=== PATIENT | female | born 1960 | race Caucasian/White ===

== ENCOUNTER 2019-07-17 10:51 | Inpatient (IN) | payer BC, OTHER ==
[~2019-07-17] VITALS: Ht 170.2 cm; Wt 52.2 kg
[2019-07-17 11:10] LABS: BASOPHILS % (AUTO) 1.1 % (0.0-2.0); EOSINOPHILS % (AUTO) 2.7 % (0.0-6.0); HEMATOCRIT 37 % (33-45); HEMOGLOBIN 12.4 g/dL (11.5-14.8); LYMPHOCYTES # (AUTO) 1.4 /CMM (0.8-4.8); LYMPHOCYTES % (AUTO) 30.5 % (20.0-44.0); MEAN CORPUSCULAR HGB CONC 34 g/dl (31.0-36.0); MEAN CORPUSCULAR VOLUME 99 fL (82-100); MONOCYTES # (AUTO) 0.4 /CMM (0.1-1.30); MONOCYTES % (AUTO) 8.5 % (2.0-12.0); NEUTROPHILS # (AUTO) 2.6 /CMM (1.8-8.9); NEUTROPHILS % (AUTO) 57.2 % (43.0-81.0); PLATELET COUNT (AUTO) 169 /CMM (150-450); RED BLOOD CELL COUNT(AUTO) 3.71 MIL/uL (4.0-5.2); WHITE BLOOD COUNT (AUTO) 4.5 K/uL (4.3-11.0)
--- NOTE | 2019-07-17 11:10 | NUR ---
[id number], from home, suicidal, took xanax 2 tabs, adderall 1 tab and wine patient verbalized "i just want to ". PT ALTERED AND UNSTEADY. DENIES ANY MEDICAL COMPLAINTS AT THIS TIME. NO ACUTE DISTRESS NOTED. SKIN WARM, DRY, INTACT. PT WANDED BY SECURITY, SUICIDE PRECAUTIONS IN PLACE. MADE COMFORTABLE AND READY FOR EVAL.
--- NOTE | 2019-07-17 11:15 | NUR ---
PLACED PT ON BEDPAN FOR URINE SAMPLE. UNABLE TO AMBULATE DUE TO ALTERED STATE
[2019-07-17 11:16] LABS: CALCIUM, SERUM 8.5 mg/dL (8.5-10.1); CREATININE 0.6 mg/dL (0.6-1.3); POTASSIUM 3.7 mmol/L (3.5-5.1)
[2019-07-17 11:23] LABS: ALBUMIN 3.9 g/dL (3.4-5.0); BILIRUBIN,DIRECT 0.1 mg/dL (0.0-0.2); BILIRUBIN,TOTAL 0.3 mg/dL (0.2-1.0); TOTAL PROTEIN, SERUM 7.2 g/dL (6.4-8.2)
[2019-07-17 11:24] LABS: SALICYLATE 0.7 mg/dL (2.8-20.0)
--- NOTE | 2019-07-17 11:59 | NUR ---
Carolina gonzalez in [facility] - 07/17/19 at 1312 by JOHANNE DAUGHTER AT BEDSIDE
--- NOTE | 2019-07-17 12:47 | NUR ---
NURSING SUP GAVE GPS BED 228-2.
--- NOTE | 2019-07-17 13:06 | NUR ---
AWAITING PT TO BE MORE STABLE BEFORE TRANSFER
--- NOTE | 2019-07-17 13:46 | NUR ---
Patient is resting comfortably in bed with eyes closed. Easily aroused. VSS
--- NOTE | 2019-07-17 16:00 | NUR ---
PT GIVEN FOOD TRAY
--- NOTE | 2019-07-17 18:13 | NUR ---
Patient is resting comfortably in bed with eyes closed. Easily aroused. VSS
--- NOTE | 2019-07-17 18:16 | NUR ---
FRIEND AT BEDSIDE
--- NOTE | 2019-07-17 18:22 | NUR ---
PT AMBULATORY WITH STEADY GAIT
--- NOTE | 2019-07-17 18:30 | NUR ---
URINE SENT TO STAT LAB
[2019-07-17 19:03] LABS: APPEARANCE,URINE Clear (CLEAR); BILIRUBIN,URINE Negative (NEGATIVE); BLOOD, URINE Negative Ery/uL (NEGATIVE); COLOR,URINE Yellow (YELLOW); KETONES,URINE Negative (NEGATIVE); LEUKOCYTE ESTERASE ,URINE Negative (NEGATIVE); NITRITE, URINE Negative (NEGATIVE); PH,URINE 6.5 (5.0-8.0); PROTEIN,URINE Negative (NEGATIVE); UGLUCOSE Negative (NEGATIVE); UROBILINOGEN,URINE 0.2 EU/dL (0.2)
--- NOTE | 2019-07-17 21:18 | NUR ---
Carolina gonzalez in [facility] - 07/17/19 at 2118 by KEZIA BED ASSIGNMENT 215
--- NOTE | 2019-07-17 21:18 | NUR ---
BED ASSIGNMENT 215-B
--- NOTE | 2019-07-17 21:43 | NUR ---
REPORT GIVEN TO RENE BONILLA FOR ANGELA
--- NOTE | 2019-07-17 22:00 | NUR ---
GPS RABBET OPERATOR NOTES: ADMITTED 59 Y/O FEMALE. PT ADMITTED FROM [facility] ON 5150. PER HOLD PT CAME TO THE HOSPITAL DUE TO SUICIDAL IDEATION AND LAST PM OVERDOSED ON ATIVAN AND AMBIEN. PT REMAINED DEPRESSED AND SUICIDAL AT THAT TIME. PT LEFT HER OF THIRTY FIVE YEARS AND HE OWNS HALF THE HOUSE AND STILL LIVES THERE. UPON FACE TO FACE ASSESSMENT PT IS ALERT AND ORIENTED X 3-4, COOPERATIVE, FLAT AFFECT, ANXIOUS, DEPRESSED, AND TEARFUL. PT STATED, "IM HERE BECAUSE I TRIED TO HURT MYSELF." PT HERNANDEZ SI/HI AT THIS TIME. PT STATED, "I FEEL SAFE HERE." PT STARTED TO BECOME TEARFUL ONCE SHE MENTIONED HER EX . PATENT STATED HER CURRENT MEDICATION SHE IS TAKING ARE LEXPRO 10MG PO DAILY AND LEVOTHYROXINE 100MCG PO ACB. MEDICATION PUT IN ON MED RECON. PT SIGNED CONSENT PAPERS. ENVIRONMENTAL SAFETY CHECK DONE Q15 MIN. ENCOURAGED PT TO VERBALIZE FEELINGS AND CONCERNS TO STAFF. ORIENTED TO THE UNIT. MD AWARE AND NOTIFIED OF ADMISSION TO MARINE ENGINE MECHANIC ANNMARIE AND PSYCH DR SNIDER. BELONGINGS CHECKED FOR CONTRABAND WERE DONE. NURSING ASSESSMENT DONE SKIN ASSESSMENT: PICTURE TAKEN AND PUT IN THE CHART. WITH RIGHT SHOULDER REDNESS AND BILATERAL KNEE BRUISES UPON ADMISSION. PER PATIENTS REQUEST, PT DOES NOT WANT HER FRIEND MARSHA ZEPEDA TO VISIT HER IF HE COMES TO SEE HER AT THE HOSPITAL. HE IS ONLY ALLOWED TO DROP OFF HER SHAMPOO. PT STATED ANYONE ELSE CAN VISIT HER, JUST NOT MARSHA ZEPEDA. WILL ENDORSE TO DAY SHIFT TO MAKE THEM AWARE. PT RIGHTS DISCUSS BY MARKETING OPERATIONS SPECIALIST. PROVIDE PT WITH HANDBOOK AND MED GUIDE. VITALS WNL. NO S/S OF RESP DISTRESS. BREATHING EVEN AND UNLABORED. CONTINUE TO MONITOR.
--- NOTE | 2019-07-17 22:04 | NUR ---
[facility]
[2019-07-17] MEDS ORDERED: MAGNESIUM HYDROXIDE 30 ML UDC PO PRN (22:30)
[2019-07-17] MEDS ORDERED: BLOOD SUGAR DIAGNOSTIC 1 EACH STRIP IN ONE (22:30)
[2019-07-17] MEDS ORDERED: MAG HYDROX/AL HYDROX/SIMETH 30 ML UDC PO PRN (22:30)
[2019-07-17] MEDS ORDERED: TEMAZEPAM 7.5 MG CAPSULE PO PRN (22:30)
[2019-07-17] MEDS ORDERED: ACETAMINOPHEN 325 MG TABLET PO PRN (22:30)
[2019-07-18] MEDS ORDERED: ESCI10TA PO (00:13)
[2019-07-18] MEDS ORDERED: LEVO100T9 PO (00:13)
--- NOTE | 2019-07-18 00:34 | NUR ---
GPS RN NOTES: PT C/O SHE IS HAVING A HARD TIME FOLLOWING ASLEEP. CHECKED PT VITALS WNL. OFFERED. RESTORIL 7.5 MG PO PRN ORDERED. PT AGREED. NO S/S OF RESP DISTRESS. BREATHING EVEN AND UNLABORED. PT TOLERATED MEDICATION WELL. CONTINUE TO MONITOR.
[2019-07-18 00:56] VITALS: BP 149/93
[2019-07-18] MEDS ORDERED: AMLO5TAB4 PO (05:36)
[2019-07-18] MEDS ORDERED: ADVIL PM (05:36)
--- NOTE | 2019-07-18 06:13 | NUR ---
GPS RN NOTES: PT MENTIONED SHE IS ON LEXPRO 10MG, LEVOTHRYXINE 100MCG, NORVASC 5MG, AND ADVIL PM PRN. PT DENIES ANY MEDICAL HISTORY PROBLEM AND THAT SHE TAKING THEM FOR PRN. MEDS PUT IN MED RECON. WILL ENDORSE TO DAY SHIFT FOR F/U WITH MD TO RECONCILE MEDICATION. CONTINUE TO MONITOR.
[2019-07-18] MEDS: LORAZEPAM 0.5 MG TABLET PO PRN ×2 (07:41→14:17)
[2019-07-18] MEDS: LEVOTHYROXINE SODIUM 100 MCG TABLET PO SCH (07:41)
[2019-07-18 08:00] VITALS: BP 116/61
[2019-07-18 08:58] LABS: CREATININE 0.6 mg/dL (0.6-1.3)
[2019-07-18 16:00] VITALS: BP 144/95
--- NOTE | 2019-07-18 16:05 | NUR ---
Family Contact: SW called the pts brother, Timothy ([phone]), and discussed the pts initial treatment plan and discharge plan. Pts brother expressed concern that if the pt were to return home that she may attempt again and be successful. MAYELIN stated that she will speak to the MD and then keep the pts brother updated regarding treatment.
--- NOTE | 2019-07-18 16:14 | NUR ---
Initial Treatment Plan: Pt currently resides in an apartment with two subletters located at [address] [place] [address]; ([phone]). Per pt, she would like to return to her home. MAYELIN will work with the pt and the MD regarding appropriate discharge planning. SW will form a safe and proper discharge.
[2019-07-18 19:40] VITALS: BP 140/82
[2019-07-18] MEDS: TEMAZEPAM 7.5 MG CAPSULE PO PRN (21:04)
[2019-07-18] MEDS: ALPRAZOLAM 0.25 MG TABLET PO PRN (21:05)
--- NOTE | 2019-07-18 21:05 | NUR ---
vegetable washer notes restoril 50 given as ordered per pt requested then after she take sleep medication she also asking for her anxiety meds which is xanax. educated pt for possible side effect and pt understood well. kept her warm and comfortable at all times. will continue to monitor.
--- NOTE | 2019-07-19 | NUR ---
canvas shrinker notes pt sleeping comfortably in bed without any distress noted. will continue monitoring.
[2019-07-19] MEDS: LEVOTHYROXINE SODIUM 100 MCG TABLET PO SCH (07:04)
[2019-07-19 08:00] VITALS: BP 149/83
[2019-07-19] MEDS: ALPRAZOLAM 0.25 MG TABLET PO PRN ×2 (08:04→23:10)
[2019-07-19] MEDS: AMLODIPINE BESYLATE 5 MG TABLET PO SCH (09:11)
[2019-07-19] MEDS: ESCITALOPRAM OXALATE (10 MG) 10 MG TABLET PO SCH (09:11)
--- NOTE | 2019-07-19 09:38 | NUR ---
UR Note: MAYELIN faxed a clinical to [facility] Repairer Resistance Welding Machines Karla Velázquez to the fax number: [phone].
--- NOTE | 2019-07-19 12:25 | NUR ---
Substance Abuse Intervention: SW conducted a substance abuse intervention with the pt due to her alcohol abuse that resulted in the pt receiving 2 DUIs.
--- NOTE | 2019-07-19 15:35 | NUR ---
Group note: Pt attended a group session on 07/19/19 at 2PM discussing suicidal ideation and urges. S: I have attempted about three times in my life in the past two years by overdose. This time I had the building picked out that I was going to jump off of but before my uber putaway driver got there I asked him to take me to the hospital instead. Something held me back from ending my life and I think that is because I am generally an optimistic person and the thought that it could get better kept me going. But I was so determined to do it that morning and that is such a scary thought. O: Pt was present during the group session and was cooperative. Pt appeared to be in a dysphoric mood and presented with an anxious affect. Pt was attentive and provided feedback to all of the other patients who attended. Pt was able to appropriately maintain eye contact and tone of voice throughout the assessment. Pt was observed to be trembling because her hands were unsteady. A: Pt expressed that she was always a positive individual but her recent life events have caused her to feel depressed about her life and the thought that she did not intend to be unmarried and living with young roommates at this age has been keeping her from being positive. Pt stated that she had masked her feelings for years and came to the understanding that not addressing her feelings have caused her to bottle them up and when all of the feelings come out she ends up making an attempt. Pt understands that she needs to consistently address her feelings. P: Pt will continue milieu treatment and medication stabilization.
[2019-07-19 16:00] VITALS: BP 127/77
[2019-07-19 20:00] VITALS: BP 144/90
[2019-07-19] MEDS: TEMAZEPAM 7.5 MG CAPSULE PO PRN (22:09)
[2019-07-20 08:00] VITALS: BP 132/87
[2019-07-20] MEDS: LEVOTHYROXINE SODIUM 100 MCG TABLET PO SCH (08:14)
[2019-07-20] MEDS: ESCITALOPRAM OXALATE (10 MG) 10 MG TABLET PO SCH (08:14)
[2019-07-20] MEDS: AMLODIPINE BESYLATE 5 MG TABLET PO SCH (08:15)
--- NOTE | 2019-07-20 10:38 | NUR ---
UR Note: SW called the pts [employer] Rotary Swaging Machine Operator, Karla Velázquez ([phone] ext [phone]), and left a clinical on her voicemail requesting additional days of authorization.
--- NOTE | 2019-07-20 11:20 | NUR ---
Family Contact: SW called the pts friend, Sohan ([phone]), and spoke to him about the pts treatment plan. It was expressed that the pt is not safe in her home and the SW stated that the pt is refusing placement in an Assisted Living or an Independent Living due to her finances. SW stated that she will attempt to receive additional authorization from the insurance company.
[2019-07-20] MEDS: ALPRAZOLAM 0.25 MG TABLET PO PRN ×2 (11:45→21:58)
--- NOTE | 2019-07-20 13:55 | NUR ---
UR Note: [employer] Supervisor Quality Control, Karla Velázquez ([phone] ext [phone]), called the SW and the SW provided her with additional information regarding the pt. Pt was authorized two additional days 07/20 and 07/21.
[2019-07-20] MEDS ORDERED: ONDANSETRON HCL/PF 4 MG/2 ML VIAL ONE (15:04)
[2019-07-20] MEDS ORDERED: KETOROLAC TROMETHAMINE 15 MG/ML VIAL ONE (15:04)
--- NOTE | 2019-07-20 15:28 | NUR ---
GROUP NOTE: SW encouraged pt to attend group on this present day discussing "discharge planning." Pt refused asking who will be attending group as she states that yesterday while in group another pt was making her feel very anxious and stated that she would rather not engage with other pts in the unit. Pt stated that she already has her discharge plan figured out and did not need to discuss this in a group setting.
[2019-07-20 16:00] VITALS: BP 146/71
[2019-07-20 21:16] VITALS: BP 109/69
[2019-07-20] MEDS: ARIPIPRAZOLE 2 MG TABLET PO SCH (21:58)
[2019-07-20] MEDS: TEMAZEPAM 7.5 MG CAPSULE PO PRN (22:37)
[2019-07-21 08:00] VITALS: BP 117/67
[2019-07-21] MEDS: AMLODIPINE BESYLATE 5 MG TABLET PO SCH (08:24)
[2019-07-21] MEDS: ESCITALOPRAM OXALATE (10 MG) 10 MG TABLET PO SCH (08:25)
[2019-07-21] MEDS: LEVOTHYROXINE SODIUM 100 MCG TABLET PO SCH (08:25)
--- NOTE | 2019-07-21 10:07 | NUR ---
UR Note: SW called the pts [employer] Casino Floor Supervisor, Karla Velázquez ([phone] ext [phone]), and left a clinical on her voicemail requesting additional days of authorization.
--- NOTE | 2019-07-21 10:07 | NUR ---
Individual Intervention with the pt: SW spoke to the pt at bedside individually. Pt stated that she is aware that the insurance company is being difficult in terms of providing additional authorization but she states that she is not ready to be discharged at this time. Pt states that she is easily triggered and that even a commercial regarding alcohol triggers her and makes her think that she would like a drink. Pt states that she is aware that instead of drinking when she is feeling triggered she can go for a walk or even exercise. SW stated that was positive thinking.
--- NOTE | 2019-07-21 11:37 | NUR ---
UR Note: [employer] Electronic Specialist, Karla Velázquez ([phone] ext [phone]), called the SW and stated that the pt is approved throughout the weekend.
[2019-07-21 16:00] VITALS: BP 113/77
[2019-07-21 20:00] VITALS: BP 101/70
[2019-07-21 20:10] VITALS: BP 101/70
[2019-07-21] MEDS: ALPRAZOLAM 0.25 MG TABLET PO PRN (20:39)
[2019-07-21] MEDS: ARIPIPRAZOLE 2 MG TABLET PO SCH (21:19)
--- NOTE | 2019-07-21 22:00 | NUR ---
Patient in room, calm,pleasant, feeling anxious, requested Xanax right away, interacting with room mate, denies suicidal ideation, expressed concern about being discharged. Continue monitoring q15 minutes with the help of staff to maintain safety
[2019-07-21] MEDS: TEMAZEPAM 7.5 MG CAPSULE PO PRN (22:53)
--- NOTE | 2019-07-22 06:08 | NUR ---
NO BEHAVIOR CHANGE OVERNIGHT, PATIENT ASLEEP, RECEIVED XANAX AND PM MEDS
[2019-07-22 08:00] VITALS: BP 93/69
[2019-07-22] MEDS: AMLODIPINE BESYLATE 5 MG TABLET PO SCH (08:40)
[2019-07-22] MEDS: LEVOTHYROXINE SODIUM 100 MCG TABLET PO SCH (08:40)
[2019-07-22] MEDS: ESCITALOPRAM OXALATE (10 MG) 10 MG TABLET PO SCH (08:40)
--- NOTE | 2019-07-22 13:10 | NUR ---
given mom for constipation.
[2019-07-22 16:05] VITALS: BP 114/66
--- NOTE | 2019-07-22 18:00 | NUR ---
walking about,no acute distress,seems to monitor and show concern for well being of roomate.
--- NOTE | 2019-07-22 19:30 | NUR ---
RN NOTES: PATIENT WALKING AROUND THE UNIT, DENIES SI/HI/AVH AT THIS TIME,.ENCOURAGED FOR VERBALIZATION OF FEELINGS, SAFETY PRECAUTIONS IMPLEMENTED. INTERACT WITH ENGAGED, WILL CONTINUE TO MONITOR Q15MIN ROUNDS FOR SAFETY AND BEHAVIOR.
[2019-07-22 20:09] VITALS: BP 107/76
[2019-07-22] MEDS: ALPRAZOLAM 0.25 MG TABLET PO PRN (20:46)
--- NOTE | 2019-07-22 20:48 | NUR ---
RN NOTES: PT. C/O FEELING ANXIOUS XANAX 0.125 MG PO PRN ,GIVEN PER PT. REQUEST , WILL CONTINUE TO MONITOR.
[2019-07-22] MEDS: ARIPIPRAZOLE 2 MG TABLET PO SCH (22:04)
[2019-07-22] MEDS: TEMAZEPAM 7.5 MG CAPSULE PO PRN (22:55)
--- NOTE | 2019-07-22 22:55 | NUR ---
RN NOTES: PT. C/O INSOMNIA RESTORIL 15 MG PO PRN GIVEN, PER PT. REQUEST WILL CONTINUE TO MONITOR.
--- NOTE | 2019-07-23 06:20 | NUR ---
GPS RN CLOSING NOTE: PATIENT RESTING IN BED ASLEEP, AROUSES EASILY. NO ACUTE DISTRESS NOTED. DENIES PAIN OR DISCOMFORT, NO AGITATION NOTED AT THIS TIME/ BUT EASILY AGITAED. DENIES SI/HI/AVH AT THIS TIME. SAFETY PRECAUTIONS IMPLEMENTED.ENCOURAGED PT. TO VERBALIZED ANY FEELING, WILL CONTINUE TO MONITOR FOR PT'S SAFETY AND BEHAVIOR.
[2019-07-23] MEDS: LEVOTHYROXINE SODIUM 100 MCG TABLET PO SCH (07:51)
[2019-07-23 08:00] VITALS: BP 109/67
[2019-07-23] MEDS: AMLODIPINE BESYLATE 5 MG TABLET PO SCH (08:45)
[2019-07-23] MEDS: ESCITALOPRAM OXALATE (10 MG) 10 MG TABLET PO SCH (08:45)
[2019-07-23] MEDS: ALPRAZOLAM 0.25 MG TABLET PO PRN ×2 (12:30→21:08)
--- NOTE | 2019-07-23 12:30 | NUR ---
RN NOTE- AGITATION/ PT W ANXIETY AND RESTLESSNESS. XANAX PRN DOSE GIVEN AT THIS TIME
[2019-07-23 16:00] VITALS: BP 100/72
[2019-07-23 20:16] VITALS: BP 149/75
[2019-07-23] MEDS: ARIPIPRAZOLE 2 MG TABLET PO SCH (21:08)
--- NOTE | 2019-07-23 21:10 | NUR ---
Pt c/o anxiety. Least restrictive measures ineffective. Xanax 0.125 mg po given as ordered. Will continue to monitor.
--- NOTE | 2019-07-23 22:14 | NUR ---
Post 1 hr xanax effective. Pt is calm and lying in bed. Will continue to monitor.
[2019-07-23] MEDS: TEMAZEPAM 7.5 MG CAPSULE PO PRN (22:33)
--- NOTE | 2019-07-23 22:35 | NUR ---
Pt c/o insomnia. Least restrictive measures ineffective. Restoril 15 mg po given as ordered. Will continue to montor.
--- NOTE | 2019-07-23 23:48 | NUR ---
Post 1 hr. Restoril effective. Pt asleep in bed easy to arouse. Frequent visual check done for safety. Will continue to monitor.
[2019-07-24] MEDS: LEVOTHYROXINE SODIUM 100 MCG TABLET PO SCH (07:34)
[2019-07-24 08:00] VITALS: BP 113/68
[2019-07-24 08:25] VITALS: BP 113/68
[2019-07-24] MEDS: AMLODIPINE BESYLATE 5 MG TABLET PO SCH (08:25)
[2019-07-24] MEDS: ESCITALOPRAM OXALATE (10 MG) 10 MG TABLET PO SCH (08:25)
--- NOTE | 2019-07-24 09:19 | NUR ---
Family Contact: MAYELIN called the pts friend, Sohan ([phone]), and informed him that the pt will be discharged today. He stated that he would check up on her soon after she arrives at her home.
--- NOTE | 2019-07-24 13:48 | NUR ---
RN NOTE- DC NOTE/ PT DC AT THIS TIME. ALERT ORIENTED TO PERSON PLACE TIME AND PURPOSE. DENIES SI HI VH AT TIME OF DC. DC PLANNING AND AFTERCARE REVIEWED W PT AND SHE VERBALIZED UNDERSTANDING. VALUABLES RETURNED TO PT AND SIGNED FOR. ID WRISTBAND REMOVED. ESCORTED OFF OF UNIT
--- NOTE | 2019-07-24 14:15 | NUR ---
UR Note: MAYELIN called the pts [employer] Machine Shop Specialist, Karla Velázquez ([phone] ext [phone]), and left a discharge clinical on her voicemail.
--- NOTE | 2019-07-24 14:41 | NUR ---
Discharge Note: Pt was discharged to back to her home located at [address] [facility] [address], [place] [address]; ([phone]). Pt was discharged at 11AM via Uber. Pts friend, Sohan ([phone]), was notified. Upon discharge, the pt appeared to be in a euthymic mood and calm affect. Pt stated, I feel ready to go back home and take on my life. Pt denied both suicidal and homicidal ideation as well as auditory and visual hallucinations. Pt was alert and oriented x4 (time, place, self and situation). Pt was provided with substance abuse referrals that are listed below. Pt will be under the care of psychiatrist, Dr. Judy Schroeder, located at [address] [facility], [facility] [address], [place] [address]; ([phone]); and a fax of records was sent to: [phone]. Pt has an appointment set for 08/03/19 at 9AM. Pt will also be under the care of her sql architect, Dr. Ricardo Kumar, located at [address], [address], [place] [address]; . Substance Abuse Referrals: [facility] [address] [place] [address] Tel. [facility] [address] [place] Provider Mental Health Treatment Tele-dermatology HIV Services Telemedicine Services [place] [address] [place] [address] [facility] [address] [place] [address]
--- NOTE | 2019-07-25 09:15 | NUR ---
UR Note: SW called the pts [employer] Welfare Administrator, Karla Velázquez ([phone] ext [phone]), and left a additional information for the discharge clinical on her voicemail.
== END 2019-07-24 15:15 | disposition home or self-care (01) | DRG 885 ==
LOC: ER 10:52 → GPS 21:18
PROVIDERS: ADMIT Psychiatry & Neurology Psychosomatic Medicine; ATTEND Registered Nurse
DX: F33.2 Major depressive disorder, recurrent severe without psychotic features (principal); F50.9 Eating disorder, unspecified; F41.9 Anxiety disorder, unspecified; E03.9 Hypothyroidism, unspecified; I10 Essential (primary) hypertension; F10.129 Alcohol abuse with intoxication, unspecified; Y90.8 Blood alcohol level of 240 mg/100 ml or more; T50.992A Poisoning by other drugs, medicaments and biological substances, intentional self-harm, initial encounter; Y92.009 Unspecified place in unspecified non-institutional (private) residence as the place of occurrence of the external cause; Z91.14 Patient's other noncompliance with medication regimen
CPT/HCPCS: 36415; 80048-TC; 80061-TC; 80076-TC; 80305; 81000-TC; 82565-TC; 82962-TC; 84443-TC; 85025-TC; 87081-TC; G0480; J1885; J2405

== ENCOUNTER 2020-07-23 14:55 | Inpatient (IN) | payer OTHER ==
[~2020-07-23] VITALS: Ht 170.2 cm; Wt 54.4 kg
[2020-07-23 14:00] VITALS: BP 130/76
[~2020-07-23 14:55] MED LIST: ADVIL PM; AMLO5TAB4 PO; ESCI10TA PO; LEVO100T9 PO
[2020-07-23 15:30] VITALS: BP 130/76
[2020-07-23] MEDS ORDERED: MAGNESIUM HYDROXIDE 30 ML UDC PO PRN (15:30)
[2020-07-23] MEDS ORDERED: ACETAMINOPHEN 325 MG TABLET PO PRN (15:30)
[2020-07-23] MEDS ORDERED: MAG HYDROX/AL HYDROX/SIMETH 30 ML UDC PO PRN (15:30)
[2020-07-23] MEDS ORDERED: BLOOD SUGAR DIAGNOSTIC 1 EACH STRIP IN ONE (15:30)
[2020-07-23] MEDS ORDERED: ARIP2TAB19 PO (15:52)
[2020-07-23] MEDS ORDERED: CHOL100062 PO (15:54)
[2020-07-23] MEDS ORDERED: CALC500T52 PO (15:54)
[2020-07-23] MEDS ORDERED: ASCO-352 PO (15:54)
[2020-07-23] MEDS ORDERED: VITA1TAB56 PO (15:54)
[2020-07-23] MEDS ORDERED: MAGN400T26 PO (15:54)
--- NOTE | 2020-07-23 17:16 | NUR ---
TUBE TEST TECHNICIAN NOTE: PATIENT IS A 60 YEAR OLD FEMALE ADMITTED FROM [facility] PLACED ON A 5150 FOR DTS. PER HOLD PATIENT ATTEMPTED SUICIDE DUE TO FEELING OVERWHELMED DUE TO FEELING OVERWHELMED DUE TO BREAK UP WITH OF 40 YEARS ,PATIENT REPORT SHE TOOK A FULL BOTTLE OF ADVIL AND ALTOS OF VODKA AND HORMONE PILLS TO ATTEMPT TO END HER LIFE".PATIENT UPON FACE TO FACE ASSESSMENT, PATIENT IS ALERT AND ORIENTED X3, WELL GROOMED, CLEAR SPEECH, AT THIS TIME. GUARDED, PASSIVE BEHAVIOR. ANXIOUS. FLAT AFFECT. DISORGANIZED THOUGHT PROCESS. PATIENT STATED "I WANTED TO KILL MYSELF ". VS TAKEN BP 130/76 ,T 98.7 , R 20 , P 80 ,O2 SAT 100% . CONTACTED DR ALVA AND ANNMARIE HARRELL DNP AND INFORMED THEM OF THE ADMISSION WITH ADMITTING ORDERS. PATIENT'S HANDBOOK GIVEN WITH PATIENT'S RIGHTS HAND BOOK GIVEN AND EXPLAINED TO PATIENT ABLE TO VERBALIZE UNDERSTANDING . SKIN DISCOLORATION RIGHT THIGH AND ALVARO ARMS . WILL CONTINUE TO MONITOR PATIENT Q15 MINUTES FOR SAFETY AND BEHAVIOR PER GPS PROTOCOL.
[2020-07-23 20:18] VITALS: BP 118/78
[2020-07-24] MEDS: TEMAZEPAM 7.5 MG CAPSULE PO PRN ×2 (00:37→21:12)
--- NOTE | 2020-07-24 06:35 | NUR ---
RN NOTES: PATIENT RESTING IN ROOM. NO S/S OF DISTRESS. NO CHANGE OF CONDITION NOTED, SAFETY PRECAUTION MAINTAINED, ALL PATIENT CARE NEEDS MET AT THIS TIME. WILL CONTINUE TO MONITOR PATIENT FOR MOOD, BEHAVIOR AND SAFETY AND ENDORSE TO AM SHIFT FOR CONTINUITY CARE.
--- NOTE | 2020-07-24 07:30 | NUR ---
PT RESTING IN BED.NO DISTRESS,VS STABLE.
[2020-07-24 07:39] LABS: ALBUMIN 3.9 g/dL (3.4-5.0); BILIRUBIN,TOTAL 0.3 mg/dL (0.2-1.0); CALCIUM, SERUM 10.1 mg/dL (8.5-10.1); CREATININE 0.7 mg/dL (0.6-1.3); TOTAL PROTEIN, SERUM 7.3 g/dL (6.4-8.2)
[2020-07-24 07:44] LABS: CHOLESTEROL 243 mg/dL (<200); HDL CHOLESTEROL 94 mg/dL (40-60); LDL 137 mg/dL (0-99); TRIGLYCERIDES 89 mg/dL (30-150)
[2020-07-24 08:00] VITALS: BP 112/72
[2020-07-24] MEDS: LEVOTHYROXINE SODIUM 100 MCG TABLET PO SCH ×2 (08:39→08:40)
[2020-07-24] MEDS: CALCIUM CARBONATE (1250) 500 MG TABLET PO SCH (08:39)
[2020-07-24] MEDS: ASCORBIC ACID 500 MG TABLET PO SCH (08:39)
[2020-07-24] MEDS: CHOLECALCIFEROL 1,000 UNIT TABLET (VIT D3) PO SCH (08:39)
[2020-07-24] MEDS: MAGNESIUM OXIDE 400 MG TABLET PO SCH (08:39)
[2020-07-24] MEDS: VITAMIN B COMP W-C 1 TAB TABLET PO SCH (08:39)
[2020-07-24 16:00] VITALS: BP 109/77
--- NOTE | 2020-07-24 17:54 | NUR ---
DR. SOTO CALLING IN AND EXPRESSES HE WANTS TO COME VISIT PT.
[2020-07-24] MEDS: LORAZEPAM 0.5 MG TABLET PO PRN (18:53)
--- NOTE | 2020-07-24 18:53 | NUR ---
given ativan for nervousness.
[2020-07-24 19:54] VITALS: BP 125/72
--- NOTE | 2020-07-25 07:30 | NUR ---
RN OPEN NOTES PT. IN HER ROOM AWAKE. NO DISTRESS OR AGITATION NOTED. WALKS IN THE HALLWAY. REDIRECTED. NO C/O PAIN OR DISCOMFORT. SAFETY ENVIRONMENT OBSERVED AT ALL TIMES. COMPLIANT WITH MEDICATION. WILL CONTINUE TO MONITOR Q 15 MIN FOR SAFETY AND BEHAVIOR.
[2020-07-25 08:00] VITALS: BP 111/66
[2020-07-25] MEDS: VITAMIN B COMP W-C 1 TAB TABLET PO SCH (08:51)
[2020-07-25] MEDS: MAGNESIUM OXIDE 400 MG TABLET PO SCH (08:51)
[2020-07-25] MEDS: CALCIUM CARBONATE (1250) 500 MG TABLET PO SCH (08:51)
[2020-07-25] MEDS: CHOLECALCIFEROL 1,000 UNIT TABLET (VIT D3) PO SCH (08:51)
[2020-07-25] MEDS: ASCORBIC ACID 500 MG TABLET PO SCH (08:51)
[2020-07-25] MEDS ORDERED: ARIPIPRAZOLE 2 MG TABLET PO SCH (09:00)
[2020-07-25] MEDS ORDERED: ESCITALOPRAM OXALATE (10 MG) 10 MG TABLET PO SCH (09:00)
--- NOTE | 2020-07-25 14:31 | NUR ---
RN-CO: DR Fowler made aware to call the patient's friend Dr Poole.
[2020-07-25 16:00] VITALS: BP 127/87
--- NOTE | 2020-07-25 16:05 | NUR ---
Substance Abuse Intervention: MAYELIN conducted a substance abuse intervention with the pt due to her overdose on prescription pills and alcohol.
--- NOTE | 2020-07-25 16:15 | NUR ---
Friend Contact: SW called the pts friend, Solomon ([phone]), and discussed that the pts hold got extended to a 5250 hold and that the pt will need to stabilize more before she is discharged. SW stated that the pt is also requesting outpatient treatment that the SW will attempt to secure.
--- NOTE | 2020-07-25 16:59 | NUR ---
Initial Discharge Plan: Pt currently resides in an apartment with a roommate located at [address] [place] [address], [facility], [place] [address]; ([phone]). Per pt, she would like to return there. SW will work with the pt and the pts MD regarding appropriate discharge planning. SW will form a safe and proper discharge.
[2020-07-25] MEDS: LORAZEPAM 0.5 MG TABLET PO PRN (20:10)
--- NOTE | 2020-07-25 20:10 | NUR ---
ANXIETY PT. C/O FEELING ANXIOUS PARANOID, ATIVAN 1 MG PO PRN GIVEN PER PT. REQUEST , WILL CONTINUE TO MONITOR.
[2020-07-25 20:25] VITALS: BP 117/75
[2020-07-26] MEDS: TEMAZEPAM 7.5 MG CAPSULE PO PRN ×2 (00:04→21:42)
[2020-07-26 08:00] VITALS: BP 105/71
[2020-07-26] MEDS: CHOLECALCIFEROL 1,000 UNIT TABLET (VIT D3) PO SCH (08:52)
[2020-07-26] MEDS: MAGNESIUM OXIDE 400 MG TABLET PO SCH (08:53)
[2020-07-26] MEDS: ARIPIPRAZOLE 5 MG TABLET PO SCH (08:53)
[2020-07-26] MEDS: ESCITALOPRAM OXALATE (10 MG) 10 MG TABLET PO SCH (08:53)
[2020-07-26] MEDS: CALCIUM CARBONATE (1250) 500 MG TABLET PO SCH (08:53)
[2020-07-26] MEDS: LEVOTHYROXINE SODIUM 100 MCG TABLET PO SCH (08:53)
[2020-07-26] MEDS: ASCORBIC ACID 500 MG TABLET PO SCH (08:53)
[2020-07-26] MEDS: VITAMIN B COMP W-C 1 TAB TABLET PO SCH (08:54)
--- NOTE | 2020-07-26 11:27 | NUR ---
UR Note: SW called the pts [employer] sample case porter, Jazmine ([phone] ext [phone]), and left a detailed clinical on her voicemail. MAYELIN requested coverage from 07/26-07/29. MAYELIN will await a call back.
[2020-07-26 16:00] VITALS: BP 100/74
[2020-07-26 20:17] VITALS: BP 129/89
--- NOTE | 2020-07-26 21:45 | NUR ---
RN NOTE PT SEEN BY DR. ALVA. WITH NEW MED ORDER.
[2020-07-26] MEDS: LORAZEPAM 0.5 MG TABLET PO PRN (22:10)
--- NOTE | 2020-07-26 22:18 | NUR ---
RN NOTE PT FEELS ANXIOUS WITH THE NEW PRESCRIBED MED, PT READING ALL THE SIDE AFFECTS AND GET ANXIOUS. REQUESTED FOR ATIVAN. ATIVAN 1 MG GIVEN ORDERED. WILL CONTINUE TO MONITOR.
[2020-07-27 06:36] LABS: BASOPHILS # (AUTO) 0.1 /CMM (0.0-0.2); EOSINOPHILS % (AUTO) 3.4 % (0.0-6.0); HEMATOCRIT 34 % (33-45); HEMOGLOBIN 11.7 g/dL (11.5-14.8); LYMPHOCYTES # (AUTO) 1.6 /CMM (0.8-4.8); LYMPHOCYTES % (AUTO) 32.8 % (20.0-44.0); MEAN CORPUSCULAR HGB CONC 34 g/dl (31.0-36.0); MEAN CORPUSCULAR VOLUME 98 fL (82-100); MONOCYTES # (AUTO) 0.7 /CMM (0.1-1.30); MONOCYTES % (AUTO) 15.2 % (2.0-12.0); NEUTROPHILS # (AUTO) 2.2 /CMM (1.8-8.9); NEUTROPHILS % (AUTO) 46.6 % (43.0-81.0); PLATELET COUNT (AUTO) 312 /CMM (150-450); RED BLOOD CELL COUNT(AUTO) 3.48 MIL/uL (4.0-5.2); WHITE BLOOD COUNT (AUTO) 4.8 K/uL (4.3-11.0)
--- NOTE | 2020-07-27 06:50 | NUR ---
RN NOTES PT AWAKE. NO BEHAVIORAL ISSUES NOTED AT THIS TIME. PER PT SHE FEEL RESTED AFTER SLEEP. DENIES ANY PAIN AT THIS TIME. NO RESP DISTRESS NOTED. ON FREQUENT VISUAL CHECK FOR SAFETY AND BEHAVIOR. PT ABLE TO MAKE NEEDS KNOWN, ATTENDED TO NEEDS. ALL SAFETY PRECAUTION MAINTAINED. WILL ENDORSE TO NEXT SHIFT NURSE FOR ANGELA.
[2020-07-27] MEDS: LEVOTHYROXINE SODIUM 100 MCG TABLET PO SCH (07:54)
[2020-07-27 08:00] VITALS: BP 110/55
[2020-07-27] MEDS ORDERED: CARBAMAZEPINE 200 MG TABLET PO SCH (09:00)
[2020-07-27] MEDS: CARBAMAZEPINE 200 MG TABLET PO SCH ×2 (09:00→17:00)
[2020-07-27] MEDS: CHOLECALCIFEROL 1,000 UNIT TABLET (VIT D3) PO SCH (09:13)
[2020-07-27] MEDS: ASCORBIC ACID 500 MG TABLET PO SCH (09:13)
[2020-07-27] MEDS: ARIPIPRAZOLE 5 MG TABLET PO SCH (09:14)
[2020-07-27] MEDS: CALCIUM CARBONATE (1250) 500 MG TABLET PO SCH (09:14)
[2020-07-27] MEDS: ESCITALOPRAM OXALATE (10 MG) 10 MG TABLET PO SCH (09:14)
[2020-07-27] MEDS: MAGNESIUM OXIDE 400 MG TABLET PO SCH (09:14)
[2020-07-27] MEDS: VITAMIN B COMP W-C 1 TAB TABLET PO SCH (09:27)
--- NOTE | 2020-07-27 14:55 | NUR ---
alert and oriented x3.keeping to self most of day,pleasant.
[2020-07-27 16:00] VITALS: BP 120/83
[2020-07-27 20:39] VITALS: BP 121/76
[2020-07-27] MEDS: TEMAZEPAM 7.5 MG CAPSULE PO PRN (22:56)
--- NOTE | 2020-07-27 22:57 | NUR ---
GPS-RN NOTES: INSOMNIA PATIENT C/O INABILITY TO SLEEP. ADMINISTERED RESTORIL 15MG PO ORDERED. WILL CONTINUE TO MONITOR.
[2020-07-28 08:00] VITALS: BP 113/84
[2020-07-28] MEDS: ESCITALOPRAM OXALATE (10 MG) 10 MG TABLET PO SCH (08:30)
[2020-07-28] MEDS: CALCIUM CARBONATE (1250) 500 MG TABLET PO SCH (08:31)
[2020-07-28] MEDS: ARIPIPRAZOLE 5 MG TABLET PO SCH (08:31)
[2020-07-28] MEDS: CARBAMAZEPINE 200 MG TABLET PO SCH ×2 (08:31→16:33)
[2020-07-28] MEDS: ASCORBIC ACID 500 MG TABLET PO SCH (08:32)
[2020-07-28] MEDS: VITAMIN B COMP W-C 1 TAB TABLET PO SCH (08:32)
[2020-07-28] MEDS: LORAZEPAM 0.5 MG TABLET PO PRN (08:32)
[2020-07-28] MEDS: CHOLECALCIFEROL 1,000 UNIT TABLET (VIT D3) PO SCH (08:32)
[2020-07-28] MEDS: LEVOTHYROXINE SODIUM 100 MCG TABLET PO SCH (08:32)
[2020-07-28] MEDS: MAGNESIUM OXIDE 400 MG TABLET PO SCH (08:32)
--- NOTE | 2020-07-28 09:14 | NUR ---
RN-CO: ATIVAN 1 MG PO FOR ANXIETY.
[2020-07-28 16:00] VITALS: BP 121/77
--- NOTE | 2020-07-28 16:33 | NUR ---
RN-CO: Patient refused Tegretol. Patient stated " I don't like the side effects."
[2020-07-28 19:49] VITALS: BP 109/74
[2020-07-28] MEDS: TEMAZEPAM 7.5 MG CAPSULE PO PRN (23:50)
[2020-07-29 08:00] VITALS: BP 113/69
[2020-07-29] MEDS: MAGNESIUM OXIDE 400 MG TABLET PO SCH (08:12)
[2020-07-29] MEDS: ARIPIPRAZOLE 5 MG TABLET PO SCH (08:12)
[2020-07-29] MEDS: ESCITALOPRAM OXALATE (10 MG) 10 MG TABLET PO SCH (08:13)
[2020-07-29] MEDS: ASCORBIC ACID 500 MG TABLET PO SCH (08:13)
[2020-07-29] MEDS: CARBAMAZEPINE 200 MG TABLET PO SCH ×3 (08:13→17:00)
[2020-07-29] MEDS: CHOLECALCIFEROL 1,000 UNIT TABLET (VIT D3) PO SCH (08:13)
[2020-07-29] MEDS: VITAMIN B COMP W-C 1 TAB TABLET PO SCH (08:13)
[2020-07-29] MEDS: LEVOTHYROXINE SODIUM 100 MCG TABLET PO SCH (08:13)
[2020-07-29] MEDS: CALCIUM CARBONATE (1250) 500 MG TABLET PO SCH (08:13)
--- NOTE | 2020-07-29 10:00 | NUR ---
RN Open Note: Patient aaox3, denies discomforts. Dressed and ambulating halls. Consumed breakfast. Compliant with meds except tegretol. Calm, cheerful and cooperative affect. No suicidal ideation/behaviors. States she harry by talking about her problems and reading.
--- NOTE | 2020-07-29 11:58 | NUR ---
UR Note: SW received a voicemail from binder caser, Karla Velázquez ([phone]), who stated that this is now her case. manager application development approved 07/26-07/29 with a review due on 07/30.
[2020-07-29 16:00] VITALS: BP 116/77
--- NOTE | 2020-07-29 18:47 | NUR ---
RN Closing Note: Patient pleasant, social and friendly with roommate and neighbor. No depressed behaviors noted. Refused tegretol x 2 doses.
[2020-07-29 19:56] VITALS: BP 124/53
[2020-07-29] MEDS: TEMAZEPAM 7.5 MG CAPSULE PO PRN (23:45)
--- NOTE | 2020-07-30 06:42 | NUR ---
GPS RN CLOSING NOTES: PATIENT AWAKE, A/O X3. PATIENT SLEPT 5HR THIS SHIFT. NO BEHAVIORAL ISSUES THIS SHIFT. NO S/S OF DISTRESS. RESPIRATION EVEN AND UNLABORED WITH EQUAL RISE AND FALL OF THE CHEST ON ROOM AIR. SAFETY PRECAUTION MAINTAINED, BED IN LOWEST POSITION AND LOCKED. Q15 MINUTES SAFETY ROUND CONTINUED. ALL PATIENT CARE NEEDS MET ANTICIPATED. WILL CONTINUE TO MONITOR PATIENT FOR MOOD, BEHAVIOR AND SAFETY AND ENDORSE TO AM SHIFT.
[2020-07-30] MEDS: LEVOTHYROXINE SODIUM 100 MCG TABLET PO SCH (07:49)
[2020-07-30 08:00] VITALS: BP 109/76
[2020-07-30] MEDS: CHOLECALCIFEROL 1,000 UNIT TABLET (VIT D3) PO SCH (08:20)
[2020-07-30] MEDS: MAGNESIUM OXIDE 400 MG TABLET PO SCH (08:20)
[2020-07-30] MEDS: VITAMIN B COMP W-C 1 TAB TABLET PO SCH (08:20)
[2020-07-30] MEDS: ESCITALOPRAM OXALATE (10 MG) 10 MG TABLET PO SCH (08:20)
[2020-07-30] MEDS: ARIPIPRAZOLE 5 MG TABLET PO SCH (08:20)
[2020-07-30] MEDS: ASCORBIC ACID 500 MG TABLET PO SCH (08:21)
[2020-07-30] MEDS: CALCIUM CARBONATE (1250) 500 MG TABLET PO SCH (08:21)
[2020-07-30] MEDS: CARBAMAZEPINE 200 MG TABLET PO SCH (08:22)
[2020-07-30] MEDS: LORAZEPAM 0.5 MG TABLET PO PRN (08:22)
--- NOTE | 2020-07-30 08:22 | NUR ---
RN NOTE- PT W STATED ANXIETY. ATIVAN 1 MG GIVEN
--- NOTE | 2020-07-30 09:00 | NUR ---
RN NOTE- NO CHANGES FOCUS DC PATIENT REMAINS COOPERATIVE TO CARE.
--- NOTE | 2020-07-30 11:05 | NUR ---
[facility] Referral: MAYELIN faxed a referral to [facility] with attn to Zina to the fax number: [phone].
--- NOTE | 2020-07-30 11:25 | NUR ---
Discharge Note: Pt will be discharged to back to her home located at [address], [address], [place] [address]; ([phone]). Pt was discharged at 12PM via Lyft. Pts friend, Solomon ([phone]), was notified of the discharge. Upon discharge, the pt appears to be in a euthymic mood and presents with a calm affect. Pt states, I feel ready to go back home, I know how to take care of myself. Pt denies both suicidal and homicidal ideation as well as auditory and visual hallucinations. Pt appears to be alert and oriented x4 (time, place, self and situation). Pt appears to be well groomed and appropriately dressed. Pt will be under the care of psychiatrist, Dr. Judy Schroeder, located at [address] [facility], [address], [place] [address]; ([phone]); and a fax of records was sent to: [phone]. also referred the pt to an outpatient program called [facility] located at [address] [facility] [address] [address]; . Pt will also be under the care of her environmental engineer, Dr. Ricardo Kumar, located at [address] [facility], [address], [place] [address]; . The multidisciplinary exit care form was done, printed, signed, and given to the patient.
--- NOTE | 2020-07-30 11:47 | NUR ---
UR Note: MAYELIN called the Behavioral Health Discharge Line ([phone]) and spoke to Valdo to conduct the discharge clinical over the line. He stated that he will pass on the information to the medicare coordinator.
--- NOTE | 2020-07-30 12:10 | NUR ---
RN DC NOTE- PT DC HOME AT THIS TIME . PT IS ALERT ORIENTED TO PERSON PLACE TIME AND PURPOSE. PT DENIES SI HI AH VH. CALM DIRECTABLE MED COMPLIANT W NO BEHAVIORAL ISSUES. PT VALUABLES RETURNED TO PT. SKIN INTACT . ID WRISTBAND REMOVED.,. DC INSTRUCTIONS REVIEWED W PT AND VERBALIZED UNDERSTANDING STATED. ESCORTED OFF UNIT TO FRONT LOBBY WHERE PT LEFT W TAXI VOUCHER
== END 2020-07-30 11:45 | disposition home or self-care (01) | DRG 885 ==
LOC: GPS 14:55
PROVIDERS: ADMIT Psychiatry & Neurology Psychiatry; ATTEND Nurse Practitioner Acute Care
DX: F31.60 Bipolar disorder, current episode mixed, unspecified (principal); F29 Unspecified psychosis not due to a substance or known physiological condition; E03.9 Hypothyroidism, unspecified; I10 Essential (primary) hypertension; F41.9 Anxiety disorder, unspecified; Z91.14 Patient's other noncompliance with medication regimen; F10.10 Alcohol abuse, uncomplicated; T51.92XD Toxic effect of unspecified alcohol, intentional self-harm, subsequent encounter; Z91.5 Personal history of self-harm
CPT/HCPCS: 36415; 80053-TC; 80061-TC; 82962-TC; 85025-TC; 87081-TC